=== PATIENT | female | born 1990 | race African-American/Black ===

== ENCOUNTER 2022-06-03 08:45 | Emergency (ER) | payer OTHER, SELFPAY ==
--- NOTE | ~2022-06-03 | US_ITS ---
EXAMINATION: US OB <= 14 weeks fetus DATE: 06/03/2022 09:34 INDICATION: Vaginal bleeding during first trimester TECHNIQUE: Real-time pelvic transabdominal and transvaginal ultrasound was performed. COMPARISON: None. FINDINGS: The uterus measures 9.0 x 8.6 x 8.2 cm. There is an intrauterine gestational sac. There is a 2.2 x 0.4 x 1.5 cm hypoechoic area adjacent to the gestational sac. A yolk sac is identified. Feta l heart motion is identified measuring 167 beats per minute (bpm) by M-mode Doppler. The crown rump length measures 3.9 cm , which correlates with an estimated gestational age of 10 weeks and 5 da y(s) (+/-) 7 day(s). The right ovary is not visualized however no right adnexal abnormality is seen. The left ovary measur es 3.4 x 2.5 x 2.6 cm. There is normal vascular flow in the left ovary. There is no free fluid in the pelvis. IMPRESSION: 1. Live intrauterine with an estimated gestational age of 10 weeks and 5 day(s) (+/-) 7 day (s) and an estimated delivery date of 12/25/2022. 2. Small subchronic hematoma. Reviewed, dictated and finalized at location B. IMPRESSION: 1. Live intrauterine with an estimated gestational age of 10 weeks an d 5 day(s) (+/-) 7 day(s) and an estimated delivery date of 12/25/2022. 2. Small subchronic hematoma.
[2022-06-03 08:49] VITALS: BP 127/73; PULSE 97; RESP 20; TEMP 36.9; O2SAT 98
--- NOTE | 2022-06-03 09:08 | ED.PREGNANCY ---
HPI - General Chief complaint: Vaginal Bleeding Stated complaint: 3 mos preg, spotting Time Seen by Provider: 06/03/22 09:00 History of Present Illness HPI Narrative: 32-year-old female presents to the emergency room for evaluation of vaginal bleeding. Patient states she is approximately 13 weeks , and has received no PROCESS EQUIPMENT OPERATOR care during this . Patient is a G5, P4. Patient also reports lower abdominal pain that radiates into her back. Denies dysuria or fever. Denies discharge. No concerns over STDs at this time Related Data Allergies Allergy/AdvReac Type Severity Reaction Status Date / Time No Known Allergies Allergy Verified 06/03/22 09:11 Review of Systems Review of Systems: CONSTITUTIONAL: Denies fever, chills, or sweats. EYES: Denies visual changes, redness, or discharge. ENT: Denies rhinorrhea, congestion, sore throat, or otalgia. CARDIOVASCULAR: Denies chest pain, palpitations, or edema. RESPIRATORY: Denies cough or dyspnea. GASTROINTESTINAL: Denies abdominal pain, nausea, vomiting, or diarrhea. GENITOURINARY: Denies dysuria or hematuria. Reports vaginal bleeding SKIN: Denies rash or itching. MUSCULOSKELETAL: Denies back pain, joint pain, or myalgia. NEUROLOGIC: Denies headache, numbness, dizziness, or weakness. PSYCHIATRIC: Denies anxiety or depression. Exam Narrative: GENERAL: Well-appearing, well-nourished, no physical limitations, and in no acute distress. HEAD: Normocephalic, atraumatic. EYES: Conjunctivae normal, PERRLA and EOMI. CHEST: Clear to auscultation. No respiratory distress. No wheezes rales or rhonchi. No tenderness. HEART: Regular rate and rhythm. No murmur heard. Normal peripheral pulses. ABDOMEN: Soft, suprapubic tenderness, nondistended, normal active bowel sounds. : Deferred BACK: No CVA tenderness; No cervical/thoracic/lumbar tenderness, step-offs, bony abnormality; FROM EXTREMITIES: Normal range of motion. No edema. No clubbing or cyanosis SKIN: Warm, dry, no rash. No noted wounds NEURO: No focal deficits. Alert and oriented x3. MAEW. CN's II-XI intact bilaterally, normal gait PSYCH: Cooperative. Normal mood and affect. Course Vital Signs Vital signs: Vital Signs Temperature 36.9 C 06/03/22 08:49 Pulse Rate 97 06/03/22 08:49 Respiratory Rate 20 06/03/22 08:49 Blood Pressure 127/73 06/03/22 08:49 Pulse Oximetry 98 06/03/22 08:49 Oxygen Delivery Room Air 06/03/22 08:49 Temperature 36.9 C 06/03/22 08:49 Pulse Rate 97 06/03/22 08:49 Respiratory Rate 20 06/03/22 08:49 Blood Pressure 127/73 06/03/22 08:49 Pulse Oximetry 98 06/03/22 08:49 Oxygen Delivery Room Air 06/03/22 08:49 MDM - OB/Uterine Contractions MDM Narrative Medical decision making narrative: 32-year-old female presenting with vaginal bleeding in the first trimester ultrasound demonstrated a live intrauterine at approximately 10 weeks and a small subchorionic hemorrhage urine was negative for a UTI. Discussed case with patient. Will have patient follow-up with PROCESS EQUIPMENT OPERATOR tomorrow. Lab Data Result diagrams: 06/03/22 09:31 06/03/22 09:31 Labs: Lab Results 06/03/22 06/03/22 06/03/22 Range/Units 09:31 09:31 09:31 WBC 3.9 L (4.5-10.0) K/mm3 RBC 4.44 (4.2-5.4) M/mm3 Hgb 11.7 L (12.0-15.0) g/dL Hct 36.4 L (37.0-47.0) % MCV 82.0 (80-100) fl MCH 26.4 (26-34) pg MCHC 32.1 (32-36) g/dl RDW 14.9 H (11.5-14.5) % Plt Count 262 (150-375) k/mm3 MPV 10.1 (7.4-10.4) fl Immature Gran % (Auto) 0.0 (0-0.5) % Neut % (Auto) 51.3 (45.5-73.1) % Lymph % (Auto) 36.7 (18.3-44.2) % [place] % (Auto) 7.4 (2.6-8.5) % Eos % (Auto) 3.8 (0-4.4) % Baso % (Auto) 0.8 (0.2-1.2) % Lymph # (Auto) 1.44 (0.9-3.2) K/mm3 [place] # (Auto) 0.3 (0.1-0.6) K/mm3 Eos # (Auto) 0.2 (0-0.3) K/mm3 Baso # (Auto) 0.0 (0.0-0.1) K/mm3 Abs Immat Gran (auto) 0.00
[2022-06-03 09:42] LABS: Basophils Percent Auto 0.8 % (0.2-1.2); Eosinophils Absolute Auto 0.2 K/mm3 (0-0.3); Eosinophils Percent Auto 3.8 % (0-4.4); Hematocrit 36.4 % (37.0-47.0); Hemoglobin 11.7 g/dL (12.0-15.0); Lymphocytes Absolute Auto 1.44 K/mm3 (0.9-3.2); Lymphocytes Percent Auto 36.7 % (18.3-44.2); Mean Corpuscular HGB Conc 32.1 g/dl (32-36); Mean Corpuscular Hemoglobin 26.4 pg (26-34); Mean Platelet Volume 10.1 fl (7.4-10.4); Monocytes Absolute Auto 0.3 K/mm3 (0.1-0.6); Monocytes Percent Auto 7.4 % (2.6-8.5); Neutrophils Percent Auto 51.3 % (45.5-73.1); Platelet Count Result 262 k/mm3 (150-375); Red Blood Count 4.44 M/mm3 (4.2-5.4); Red Cell Distribution Width 14.9 % (11.5-14.5); White Blood Count 3.9 K/mm3 (4.5-10.0)
[2022-06-03 09:43] LABS: Appearance Urine Clear (Clear); Bilirubin Urine Negative (Negative); Glucose Urine UA Negative (Negative); Ketones Urine Negative (Negative); Leukocyte Esterase Ur Negative LEU/UL (Negative); Nitrate Urine Negative (Negative); Protein Urine Negative (Negative); Urobilinogen Urine 0.2 mg/dL (<2.0)
[2022-06-03 09:44] LABS: Add Urine Microscopic? YES; Blood Urine Trace-Intact (Negative); Color Urine Light Yellow (Yellow)
[2022-06-03 09:50] LABS: Mucus Urine Rare /lpf; RBC Urine 0-2 /hpf (0-2); Squamous Epithelial Cell Urine Few /hpf (Few); WBC Urine 0-3 /hpf
[2022-06-03 09:55] LABS: Alanine Aminotransferase 18 U/L (6-35); Albumin Level 4.4 g/dL (3.5-5.1); Alkaline Phosphatase 68 U/L (38-126); Anion Gap 8 mmol/L (8-16); Aspartate Amino Transferase 22 U/L (14-36); Bilirubin,Total 0.7 mg/dL (0.2-1.3); Blood Urea Nitrogen 8 mg/dL (7-17); Calcium 8.9 mg/dL (8.4-10.2); Carbon Dioxide 22 mmol/L (22-30); Chloride 106 mmol/L (98-107); Estimated CRCL calculation 152 ml/min; Estimated Glomerular Filt Rate > 60; Glucose 114 mg/dL (65-110); Potassium 3.9 mmol/L (3.4-5.0); Sodium 136 mmol/L (137-145)
== END 2022-06-03 11:45 | disposition home or self-care (01) ==
PROVIDERS: Emergency Provider Nurse Practitioner Family
DX: O36.8910 Maternal care for other specified fetal problems, first trimester, not applicable or unspecified (principal); Z3A.13 13 weeks gestation of pregnancy
CPT/HCPCS: 36415; 76801; 80053; 81001; 84702; 85025; 85461; 99284

== ENCOUNTER 2022-10-27 10:56 | Observation (INO) | payer OTHER, SELFPAY ==
[2022-10-27 11:16] VITALS: BP 103/71; PULSE 101
[2022-10-27 11:31] VITALS: BP 102/66; PULSE 104
[2022-10-27 11:46] VITALS: BP 100/75; PULSE 117
[2022-10-27 12:01] VITALS: BP 111/71; PULSE 98
[2022-10-27 12:16] VITALS: BP 98/72; PULSE 107
--- NOTE | 2022-10-27 12:16 | PC.NURSE ---
Dr Ward notified that patient is have occa contractions between 10-15 minutes, that patient is uncomfortable even when unable to palpate contractions. Dr Ward informed that patient had sexual intercourse yesterday and unable to collect FFN. Order for SVE.
[2022-10-27 12:44] LABS: Appearance Urine Clear (Clear); Bilirubin Urine Negative (Negative); Blood Urine Negative (Negative); Color Urine Yellow (Yellow); Glucose Urine UA Negative (Negative); Ketones Urine Trace mg/dL (Negative); Leukocyte Esterase Ur Trace LEU/UL (NEGATIVE); Nitrate Urine Negative (Negative); Protein Urine Negative (Negative)
[2022-10-27 12:50] LABS: Amorphous Sediment Urine Few; Mucus Urine Rare /lpf; Squamous Epithelial Cell Urine Rare /hpf (Few); WBC Urine 0-3 /hpf (0-3)
[2022-10-27 12:51] LABS: Add Urine Microscopic? YES
--- NOTE | 2022-10-27 13:16 | PC.NURSE ---
Dr Ward notified of sve and UA results. OK to [facility].
--- NOTE | 2022-11-18 03:27 | PM.OBTRLD ---
OB - Triage/Final Diagnosis Visit Information Comments/Additional reasons for admission: I have assessed the risk for this patient, Estrella Templeton, and determined that she would benefit from observation care. Evaluation Laboratory results: Laboratory Tests 10/27/22 12:35 Urine Color Yellow Urine Appearance Clear Urine pH 7.0 Ur Specific [place] 1.020 Urine Protein Negative Urine Glucose (UA) Negative Urine Ketones Trace Ur Blood (Man) Negative Urine Nitrate Negative Urine Bilirubin Negative Urine Urobilinogen 1.0 Ur Leukocyte Esterase Trace H Urine RBC 3-5 H Urine WBC 0-3 Ur Squamous Epith Cells Rare Amorphous Sediment Few H Urine Mucus Rare Final Diagnosis (1) False labor: Code(s): O47.9 - False labor, unspecified Status: Acute
== END 2022-10-27 13:25 | disposition home or self-care (01) ==
PROVIDERS: Admitting Provider Obstetrics & Gynecology; Visit Provider Obstetrics & Gynecology
DX: O47.03 False labor before 37 completed weeks of gestation, third trimester (principal); Z3A.31 31 weeks gestation of pregnancy
CPT/HCPCS: 81001; 87086; 87147; 87181; 87186; G0378; G0379

== ENCOUNTER 2022-11-16 15:02 | Observation (INO) | payer OTHER, SELFPAY ==
[2022-11-16] VITALS (7 sets, daily range): BP systolic 108–124; BP diastolic 65–76; PULSE 92–115; BMI 39.7
--- NOTE | 2022-11-16 15:33 | OBADM ---
This patient, Estrella Templeton, admitted to the OB room OB Post 115 for observation. Patient/family oriented to hospital policies and general routines including ID bracelet, bed and alarms, visiting hours, pain management, procedures, bathroom and other care routines, personal items, smoking policy, room service/diet, and visiting hours. Patient/Family are encouraged to report perceived risks to care and to ask questions if they do not understand what they are told or what they should do.
[2022-11-16 15:40] LABS: Add Urine Microscopic? YES; Appearance Urine Slightly Cloudy (Clear); Bilirubin Urine Negative (Negative); Blood Urine Negative (Negative); Color Urine Yellow (Yellow); Glucose Urine UA Negative (Negative); Ketones Urine 1+ mg/dL (Negative); Leukocyte Esterase Ur Trace LEU/UL (Negative); Nitrate Urine Negative (Negative); Protein Urine Trace mg/dL (Negative)
[2022-11-16 15:49] LABS: Bacteria Urine Trace /hpf; Mucus Urine Rare /lpf; RBC Urine 0-2 /hpf (0-2); Squamous Epithelial Cell Urine Many /hpf (Few)
--- NOTE | 2022-11-16 16:46 | PC.NURSE ---
1640- Spoke with Dr. Nicholson, orders to recheck SVE after 2 hours. If no change, discharge to home.
--- NOTE | 2022-11-16 16:49 | PC.NURSE ---
1522- Spoke with Dr. Nicholson, patient here with abdominal pain and vaginal pressure. Orders for SVE and send urinalysis.
--- NOTE | 2022-12-08 08:41 | P.PNOB_ITS ---
OB - Triage/Final Diagnosis Visit Information Comments/Additional reasons for admission: I have assessed the risk for this patient, Estrella Templeton, and determined that she would benefit from observation care. Evaluation Laboratory results: Laboratory Tests 11/16/22 15:32 Urine Color Yellow Urine Appearance Slightly cloudy Urine pH 7.0 Ur Specific [place] 1.020 Urine Protein Trace Urine Glucose (UA) Negative Urine Ketones 1+ H Ur Blood (Man) Negative Urine Nitrate Negative Urine Bilirubin Negative Urine Urobilinogen 1.0 Leukocyte Esterase Rfl Trace H Urine RBC 0-2 Urine WBC 4-6 H Ur Squamous Epith Cells Many H Urine Bacteria Trace Hyaline Casts 1-2 Urine Mucus Rare Final Diagnosis (1) Abdominal pain affecting : Code(s): O26.899 - Other specified related conditions, unspecified trimester; R10.9 - Unspecified abdominal pain Status: Acute
== END 2022-11-16 18:00 | disposition home or self-care (01) ==
PROVIDERS: Admitting Provider Obstetrics & Gynecology; Visit Provider Obstetrics & Gynecology
DX: O26.893 Other specified pregnancy related conditions, third trimester (principal); R10.9 Unspecified abdominal pain; Z3A.34 34 weeks gestation of pregnancy
CPT/HCPCS: 81001; G0378; G0379

== ENCOUNTER 2022-12-04 16:11 | Observation (INO) | payer OTHER, SELFPAY ==
[2022-12-04] MEDS: LACTATED RINGERS 1,000 ML 200 ML IV CONT (17:04)
[2022-12-04 17:08] VITALS: BP 113/61; PULSE 78
[2022-12-04 17:09] VITALS: RESP 20; TEMP 37; BMI 38.2
--- NOTE | 2022-12-04 17:09 | OBADM ---
This patient, Estrella Templeton, admitted to the OB room 116 at 1611 for observation due to contractions and loose stools. Patient/family oriented to hospital policies and general routines including ID bracelet, bed and alarms, visiting hours, pain management, procedures, bathroom and other care routines, personal items, smoking policy, room service/diet, and visiting hours. Patient/Family are encouraged to report perceived risks to care and to ask questions if they do not understand what they are told or what they should do.
[2022-12-04 18:00] VITALS: BP 106/64; PULSE 73
[2022-12-04 19:00] VITALS: BP 117/62; PULSE 73
[2022-12-04 19:43] LABS: Add Urine Microscopic? YES; Appearance Urine Clear (Clear); Bilirubin Urine Negative (Negative); Blood Urine Negative (Negative); Color Urine Yellow (Yellow); Glucose Urine UA Negative (Negative); Ketones Urine 3+ mg/dL (Negative); Leukocyte Esterase Ur Negative LEU/UL (Negative); Nitrate Urine Negative (Negative); Protein Urine Trace mg/dL (Negative); Specific Grav Ur 1.025 (1.001-1.035); pH Urine 6.5 (5.0-9.0)
[2022-12-04 19:46] LABS: Amorphous Sediment Urine Few; Bacteria Urine Trace /hpf; Mucus Urine Few /lpf; Squamous Epithelial Cell Urine Occasional /hpf (Few); WBC Urine 0-3 /hpf
--- NOTE | 2022-12-04 19:56 | PC.NURSE ---
Dr Ward is called at this time and informed of contraction pattern, CAT1 tracing, and UA results. Orders received to DC patient to home with education on oral hydration.
--- NOTE | 2022-12-17 19:54 | P.PNOB_ITS ---
OB - Triage/Final Diagnosis Visit Information Comments/Additional reasons for admission: I have assessed the risk for this patient, Estrella Templeton, and determined that she would benefit from observation care. Evaluation Laboratory results: Laboratory Tests 12/04/22 19:35 Urine Color Yellow Urine Appearance Clear Urine pH 6.5 Ur Specific [place] 1.025 Urine Protein Trace Urine Glucose (UA) Negative Urine Ketones 3+ H Ur Blood (Man) Negative Urine Nitrate Negative Urine Bilirubin Negative Urine Urobilinogen 1.0 Leukocyte Esterase Rfl Negative Urine RBC 3-5 H Urine WBC 0-3 Ur Squamous Epith Cells Occasional Amorphous Sediment Few H Urine Bacteria Trace Urine Mucus Few H Final Diagnosis (1) False labor: Code(s): O47.9 - False labor, unspecified Status: Acute
== END 2022-12-04 20:15 | disposition home or self-care (01) ==
PROVIDERS: Admitting Provider Obstetrics & Gynecology; Visit Provider Obstetrics & Gynecology
DX: O47.1 False labor at or after 37 completed weeks of gestation (principal); Z3A.37 37 weeks gestation of pregnancy
CPT/HCPCS: 59025; 81001; G0378; G0379; J7120

== ENCOUNTER 2022-12-17 13:23 | Outpatient (CLI) | payer OTHER, SELFPAY ==
[2022-12-17 13:37] LABS: Hematocrit 29.9 % (37.0-47.0); Hemoglobin 9.6 g/dL (12.0-15.0); Mean Corpuscular HGB Conc 32.1 g/dl (32-36); Mean Corpuscular Hemoglobin 25.2 pg (26-34); Mean Corpuscular Volume 78.5 fl (80-100); Platelet Count Result 232 k/mm3 (150-375); Red Blood Count 3.81 M/mm3 (4.2-5.4); Red Cell Distribution Width 14.6 % (11.5-14.5); White Blood Count 5.7 K/mm3 (4.5-10.0)
[2022-12-17 16:51] LABS: Rapid Plasma Reagin Non-Reactive (NonReactive)
== END 2022-12-17 13:24 | disposition home or self-care (01) ==
LOC: ANHLAB 13:24
PROVIDERS: Visit Provider Obstetrics & Gynecology
DX: Z34.93 Encounter for supervision of normal pregnancy, unspecified, third trimester (principal); Z3A.00 Weeks of gestation of pregnancy not specified
CPT/HCPCS: 36415; 85027; 86592; 86850; 86900; 86901

== ENCOUNTER 2022-12-18 04:57 | Inpatient (IN) | payer OTHER, SELFPAY ==
--- NOTE | 2022-12-17 12:55 | PC.NURSE ---
Verified with OR schedule and patient--C/S 12/18/22 at 0730 Patient given requisition for pre-op lab draw
[2022-12-18] VITALS (66 sets, daily range): BP systolic 78–129; BP diastolic 36–92; PULSE 55–148; RESP 12–20; TEMP 36.3–37; O2SAT 96–100; BMI 39.7
--- NOTE | 2022-12-18 05:29 | LDADM ---
This patient, Estrella Templeton, was admitted to Labor/Delivery/Recovery 120 on 12/18/22 at 04:57. Plans for labor, pain management and were discussed with patient. Patient/family oriented to hospital policies and general routines including ID bracelet, bed and alarms, visiting hours, pain management, procedures, bathroom and other care routines, personal items, smoking policy, room service/diet and guest tray routines, security routines, and visiting hours. Patient/Family are encouraged to report perceived risks to care and to ask questions if they do not understand what they are told or what they should do. See OBIX for further documentation.
[2022-12-18] MEDS: LACTATED RINGERS 1,000 ML 125 ML IV CONT ×2 (06:12→06:55)
--- NOTE | 2022-12-18 07:00 | P.PNAN_ITS ---
Anes - Initial Pre Proc Eval Procedure: Operation Date: 12/18/22 07:30 Proposed Procedures p Repeat Section - Leidy Ward MD Date/Time: 12/18/22 07:00 Surgeon: Leidy Ward MD Pre Op Diagnosis: C/S Patient Data Age: 32 Gender: F Height: 1.63 m Weight: 105 kg Last Vital Signs Pulse 82 12/18/22 06:46 BP 112/67 12/18/22 06:46 O2 Del Method Room Air 12/18/22 05:28 Allergies Allergy/AdvReac Type Severity Reaction Status Date / Time morphine AdvReac Itching Verified 12/18/22 05:26 Home Medications Medication Instructions Recorded Confirmed Type vitamin with calcium 1 tablet PO DAILY 12/04/22 12/18/22 History no.72-iron 27 mg-folic acid 1 mg tablet ( Vitamins Plus Low Iron) Patient hx anesthesia problems: none Family hx anesthesia problems: none Results Review: All pre-operative results and documents have been reviewed as part of the pre- operative evaluation. PMFSH Family History Family History Other Unknown family medical history Social History Social History Smoking status: Never smoker Substance use: never Lack of Transportation: No Lack of Food: Never True Current Housing: I Have Housing Concerned About Future Housing: No Difficulty Paying Gas/Electric Bills: No Difficulty Paying for Meds: No Currently Unemployed: No Education: High School Diploma/GED Difficulty w/ Childcare or Family Care: No Spiritual care concerns: No Anes - Eval Final PreProcedure Day of Procedure 12/18/22 07:00 Patient weight: obese Heart: regular rate and rhythm Lungs: clear to auscultation Airway: Mallampati scale class II Neurological: alert and oriented Last oral intake: >/= 8 hours ASA classification: II Emergent: no Anesthetic plan: proceed Anesthesia type and monitoring: regional spinal and standard monitoring Results Review: All pre-operative results and documents have been reviewed as part of the pre- operative evaluation. Informed Consent: The patient's anesthetic plan and its attendant risks and benefits were discussed with the patient/family/POA. Questions were solicited and answers provided to the satisfaction of the patient/family/POA.
--- NOTE | 2022-12-18 07:22 | PM.IMHP ---
H&P: HPI History of Present Illness Date/Time: 12/18/22 07:22 Chief Complaint: Term Narrative: this patient is a 32-year-old female at 39 weeks with 4 previous deliveries. To proceed with repeat delivery today. She understands the risk. She understands that injuries may occur that result in hospitalization, more surgery, and severe illness. She understands the risk of hemorrhage and infection. She denies any chest pain shortness of breath. She denies any nausea, vomiting, fever, chills. She denies any loss of fluid, vaginal bleeding or contractions. Review of Systems Review of Systems: All systems reviewed & are unremarkable except as noted in HPI and below Constitutional: Constitutional: Denies chills, Denies fatigue, Denies fever(s) and Denies weakness Eyes: Eyes: Denies blurry vision, Denies change in vision, Denies loss of peripheral vision, Denies loss of vision, Denies other visual disturbances and Denies eye pain ENT: Denies vertigo, Denies dizziness, Denies hearing loss, Denies mouth pain, Denies nasal obstruction, Denies neck mass and Denies neck pain Cardiovascular: Cardiovascular: Denies chest pain, Denies diaphoresis, Denies syncope, Denies leg edema and Denies dyspnea Respiratory: Respiratory: Denies chest congestion, Denies cough, Denies hemoptysis, Denies dyspnea and Denies wheezing Gastrointestinal: Gastrointestinal: Denies abdominal pain, Denies constipation, Denies diarrhea, Denies nausea and Denies vomiting Genitourinary: Genitourinary: Denies hematuria, Denies change in libido, Denies nocturia, Denies genital lesions, Denies flank pain and Denies urinary urgency Musculoskeletal: Musculoskeletal: Denies abnormal gait, Denies back pain, Denies myalgias, Denies arthralgias, Denies joint swelling, Denies muscle weakness and Denies neck pain Integumentary/Breasts: Skin/Breast: Denies swelling, Denies breast pain, Denies breast mass, Denies dry skin, Denies nipple discharge, Denies unusual bruising and Denies jaundice Neurologic: Denies Neuro-related abnormal movements, Denies Abnormal speech present, Denies abnormal gait, Denies behavioral changes, Denies confusion, Denies vertigo, Denies dizziness, Denies syncope, Denies loss of vision, Denies memory loss, Denies convulsions and Denies weakness Psychiatric: Psychiatric: Denies abnormal sleep pattern, Denies behavioral changes, Denies change in libido, Denies confusion, Denies depression, Denies anhedonia and Denies memory loss Endocrine: Endocrine: Reports no additional endocrine complaints, Denies change in libido and Denies fatigue Hematologic/Lymphatic: Hematologic/Lymphatic: Reports no additional hematologic/lymphatic complaints Allergic/Immunologic: Allergic/Immunologic: Reports no additional allergic/immunologic complaints and Denies wheezing PMFSH Family History Family History Other Unknown family medical history Social History Social History Smoking status: Never smoker Substance use: never Lack of Transportation: No Lack of Food: Never True Current Housing: I Have Housing Concerned About Future Housing: No Difficulty Paying Gas/Electric Bills: No Difficulty Paying for Meds: No Currently Unemployed: No Education: High School Diploma/GED Difficulty w/ Childcare or Family Care: No Spiritual care concerns: No Meds Home Medications and Allergies Home Medications Medication Instructions Recorded Confirmed Type vitamin with calcium 1 tablet PO DAILY 12/04/22 12/18/22 History no.72-iron 27 mg-folic acid 1 mg tablet ( Vitamins Plus Low Iron) Allergies Allergy/AdvReac Type Severity Reaction Status Date / Time morphine AdvReac Itching Verified 12/18/22 05:26 Vital Signs Vital Signs - 24 hr 12/18/22 05:28 12/18/22 05:38 12/18/22 05:4
[2022-12-18] MEDS: LORATADINE 10 MG TABLET PO ×2 (07:25→19:43)
[2022-12-18] MEDS: ceFAZolin 2 GM/D5W 50 ML 2 GM/50 ML BAG IVPB (07:27)
--- NOTE | 2022-12-18 08:31 | W.PM.PROC2 ---
Procedure Note - Detailed Date of Procedure 12/18/22 Pre-op Diagnosis Previous C/S Post-op Diagnosis Same Procedure Performed Low-transverse section Surgeon Leidy Ward MD Anesthesia Spinal Findings Normal gestational maternal anatomy, average size infant, normal Apgars. Description of Procedure The patient was taken the operating room. She was prepped and draped in dorsal supine position with a leftward tilt. This was done after spinal anesthetic was applied. A low-transverse skin incision was made and carried down till of the fascia with the knife. The fascial incision was made with the knife. The fascial incision was extended laterally with Hair scissors. The fascia was tented upward superiorly and inferiorly the rectus muscles were dissected off bluntly. The rectus muscles were the midline. The preperitoneal fat and peritoneum were dissected open bluntly at the superior aspect of the rectus muscles. The peritoneal incision was extended superior and inferior with good position of bladder. The uterine incision was made with a scalpel down to the level of the amniotic cavity. The amniotic cavity was entered bluntly. The was delivered. The cord was clamped and cut and the infant was handed off to waiting pediatric staff. Cord bloods were obtained. The placenta was removed manually. The uterus was exteriorized. The uterus was cleared of all clots, debris and membranes. The uterus was closed in 0 Vicryl running lock fashion. An imbricating over a was placed along the incision line as well. The uterus was returned to the abdomen. The gutters were cleared of all clots and debris. The fascia was closed with 0 Vicryl running fashion. The subcutaneous tissue was irrigated pinpoint bleeders were cauterized. The skin was closed with subcuticular absorbable reilly. The skin incision line was covered with glue. The patient tolerated the procedure well. She has taken recovery room in stable condition. Sponge lap and needle counts were correct x2. Estimated Blood Loss 400 Complications No immediate complications Condition Stable Disposition PACU
--- NOTE | 2022-12-18 10:45 | OBPPTRN ---
Patient transferred to post room #280 via stretcher. Support person present. Oriented to unit, room, information board, rooming in, admission packet and security measures. Patient verbalizes understanding.
[2022-12-18] MEDS: KETOROLAC 30 MG/ML VIAL (*BKC) IV PUSH (11:26)
[2022-12-18] MEDS: DEXTROSE 5%/0.45% SOD CHL 1,000 ML 125 ML IV CONT (13:35)
[2022-12-18] MEDS: diphenhydrAMINE HCl INJ 50 MG/ML VIAL 25 MG IV PUSH (14:41)
[2022-12-18] MEDS: NALBUPHINE HCL INJ 10 MG/ML AMPUL 2 MG IV PUSH (15:40)
[2022-12-18] MEDS: POLYSACCHARIDE IRON COMPLEX 150 MG CAPSULE PO (16:25)
[2022-12-18] MEDS: DOCUSATE SODIUM 100 MG CAPSULE PO (16:25)
[2022-12-18] MEDS: MULTIVIT/MIN/PREN/FOL AC/IRON TABLET 1 TAB PO (16:25)
--- NOTE | 2022-12-18 16:26 | PC.NURSE ---
[id number] Introductions were made, then consulted with patient to assess needs related to . Mother led the conversation with her?plans to feed?her , she has a history of but this is the first baby that has been sleepy and not breastfed right away. Resources provided for inpatient and outpatient services with the mom/baby guide. Mother voiced understanding of information and received offer of assistance since her has not breastfed since . Mother works well with her with encouragement and education. Encouraged understanding of the benefits of skin to skin (demonstrating unwrapping infant and placing upright on her chest), stimulating with massage touch, changing positions to encourage wakefulness, how to watch for early feeding cues, responsive feeding, feeding on demand (aiming for 8-12 times in 24 hours, about every 2-3 hours), milk production, building/maintaining a milk supply, duration of feeding, signs of adequate intake/output and how to record on the feeding sheet. Reviewed positioning and ear, shoulder, hip alignment, supporting the breast to facilitate a deep latch, asymmetrical latch (off-center), leading with the chin with a big, open, wide gape and body close to mother. Infant is sleepy and reluctant. Mother was educated on the skill of hand expressing first milk from her breast and 1/2 tsp was spoonfed to her , then latched optimally to the left breast in cross cradle position for 5 minutes. Education given to mother of how to visualize suck/swallow ratios and listen for drinking at the breast. Infant was able to maintain latch without discomfort to mother, however, detached and was placed skin to skin relaxed and content. Nipple care reviewed with optimal latch and good positioning. Reviewed good handwashing when or touching the breast/nipples to prevent infection. Resources used to facilitate learning were used with the tool, mom and baby guide. Mother voiced understanding of skin to skin, stimulating with massage touch, responsive feedings, hand expressed colostrum, talking to infant to encourage if it has been 2 -2.5 hours since the start of the last , to call if infant does not latch, or if there is discomfort with . Resources provided for inpatient/outpatient with the mom/baby guide. Mother voiced understanding of information, demonstrated learning and will call if there is a request for assistance. Reported to primary RN. [id number] Purposefully rounded to assess needs. was placed skin to skin, stimulated, burped, massage touched, talk to and encouraged to wake to breastfeed. is sleepy and reluctant. Mother practiced hand expression and 4mls of colostrum was spoon fed to the . A few minutes after feeding the spit up white, frothy clearing fluid. Mother was encouraged to continue to practice self care, skin to skin, stimulating infant every 2-3 hours, practice if feeding cues are visualized, hand express and ask for assistance with latching infant effectively or if there is pain with the latch. Mother voiced understanding of the information and encouraged to wait for the big, open, wide gape for latching with chin buried into the breast with nose near and discouraged to push the nipple into the infants mouth. Reported to the Primary RN.
[2022-12-18] MEDS: IBUPROFEN 600 MG TABLET PO (19:43)
[2022-12-18] MEDS: HYDROcodone/acetaminophen (*CRX) 5-325 MG TABLET 1 TAB PO (19:44)
[2022-12-19 00:18] VITALS: BP 94/59; PULSE 87; RESP 16; TEMP 36.9; O2SAT 100
[2022-12-19] MEDS: IBUPROFEN 600 MG TABLET PO ×3 (02:44→16:41)
[2022-12-19] MEDS: HYDROcodone/acetaminophen (*CRX) 5-325 MG TABLET 1 TAB PO (02:45)
[2022-12-19 04:11] VITALS: BP 94/59; PULSE 87; RESP 16; TEMP 36.9; O2SAT 100
[2022-12-19 05:26] LABS: Basophils Percent Auto 0.4 % (0.2-1.2); Eosinophils Absolute Auto 0.1 K/mm3 (0-0.3); Eosinophils Percent Auto 1.3 % (0-4.4); Hematocrit 28.5 % (37.0-47.0); Immature Granulocyte Absolute 0.03 K/mm3 (0.00-0.031); Immature Granulocyte Percent A 0.4 % (0-0.5); Lymphocytes Percent Auto 17.7 % (18.3-44.2); Mean Corpuscular HGB Conc 31.6 g/dl (32-36); Mean Corpuscular Hemoglobin 24.7 pg (26-34); Mean Corpuscular Volume 78.3 fl (80-100); Mean Platelet Volume 11.1 fl (7.4-10.4); Monocytes Absolute Auto 0.7 K/mm3 (0.1-0.6); Monocytes Percent Auto 8.1 % (2.6-8.5); Neutrophils Absolute Auto 6.1 K/mm3 (1.3-6.7); Neutrophils Percent Auto 72.1 % (45.5-73.1); Platelet Count Result 242 k/mm3 (150-375); Red Blood Count 3.64 M/mm3 (4.2-5.4); Red Cell Distribution Width 14.6 % (11.5-14.5); White Blood Count 8.5 K/mm3 (4.5-10.0)
--- NOTE | 2022-12-19 07:52 | P.PNOB_ITS ---
OB - PN: Subj Subjective Date/time seen: 12/19/22 0752 s/p section day 2 OB - PN: Obj Data Labs 12/19/22 04:37 Labs: Laboratory Results - last 24 hr 12/19/22 04:37 WBC 8.5 RBC 3.64 L Hgb 9.0 L Hct 28.5 L MCV 78.3 L MCH 24.7 L MCHC 31.6 L RDW 14.6 H Plt Count 242 MPV 11.1 H Immature Gran % (Auto) 0.4 Neut % (Auto) 72.1 Lymph % (Auto) 17.7 L [place] % (Auto) 8.1 Eos % (Auto) 1.3 Baso % (Auto) 0.4 Lymph # (Auto) 1.50 [place] # (Auto) 0.7 H Eos # (Auto) 0.1 Baso # (Auto) 0.0 Abs Immat Gran (auto) 0.03 Absolute Neuts (auto) 6.1 Absolute Nucleated RBC 0.0 Nucleated RBC % 0.0 OB - PN A/P Plan day: 1 Plan: routine care Time Spent With Patient Time: Total time spent is greater than 50% in coordination of care (as documented) at patient's floor/unit and/or counseling patient: Review of Systems Review of Systems: All systems reviewed & are unremarkable except as noted in HPI and below Exam Narrative: incision CDI Const: General: cooperative, healthy appearing and comfortable
[2022-12-19 08:15] VITALS: BP 116/69; PULSE 80; RESP 18; TEMP 37.4; O2SAT 100
[2022-12-19] MEDS: DOCUSATE SODIUM 100 MG CAPSULE PO ×2 (08:29→16:40)
[2022-12-19] MEDS: MULTIVIT/MIN/PREN/FOL AC/IRON TABLET 1 TAB PO (08:30)
[2022-12-19] MEDS: POLYSACCHARIDE IRON COMPLEX 150 MG CAPSULE PO ×2 (08:30→16:40)
[2022-12-19] MEDS: NALBUPHINE HCL INJ 10 MG/ML AMPUL 2 MG IV PUSH (08:42)
--- NOTE | 2022-12-19 09:57 | WPDANLDPN2 ---
Anes-Prog Note L&D Date/Time: 12/19/22 09:57 Comfortable throughout: section Neuraxial method: spinal Epidural/Spinal procedure site: clean & non-tender Neuro status: Neuro function grossly intact. Cardiovascular status: normal Respiratory status: normal Airway patency: baseline Mental status: baseline Post-Op hydration status: normal Vital Signs: Last Vital Signs Temp 37.4 C 12/19/22 08:15 Pulse 80 12/19/22 08:15 Resp 18 12/19/22 08:15 BP 116/69 12/19/22 08:15 Pulse Ox 100 12/19/22 08:15 O2 Del Method Room Air 12/18/22 20:27 Pain score (VAS): 0 I/O: Intake & Output 12/18/22 12/19/22 12/19/22 23:59 07:59 15:59 Intake Total 700 Output Total 2625 Balance -1925 Post-procedural complaints: pruritis Patient feedback: Patient satisfied with anesthetic care.
--- NOTE | 2022-12-19 09:58 | WPDANLDNPN2 ---
Anes-Prog Note L&D-Neuraxial Date/Time: 12/19/22 09:58 Neuraxial medications: intrathecal PF morphine Opiod-related complaints: pruritis Patient feedback: Patient satisfied with post-operative pain management.
[2022-12-19] MEDS: SIMETHICONE 80 MG TAB.CHEW PO ×3 (11:16→19:48)
[2022-12-19] MEDS: HYDROcodone/acetaminophen (*CRX) 10-325 MG TABLET 1 TAB PO ×3 (11:17→19:48)
--- NOTE | 2022-12-19 12:20 | PC.NURSE ---
Rupert Barba RN, has checked over and agrees with the charting that Bertin Chowdary, Student RN, has completed.
[2022-12-19 19:10] VITALS: BP 106/72; PULSE 74; RESP 18; TEMP 36.6; O2SAT 100
[2022-12-20] MEDS: SIMETHICONE 80 MG TAB.CHEW PO ×5 (00:20→17:33)
[2022-12-20] MEDS: HYDROcodone/acetaminophen (*CRX) 10-325 MG TABLET 1 TAB PO ×3 (00:20→17:34)
[2022-12-20] MEDS: HYDROcodone/acetaminophen (*CRX) 5-325 MG TABLET 1 TAB PO ×3 (04:18→11:25)
[2022-12-20] MEDS: IBUPROFEN 600 MG TABLET PO ×3 (04:19→17:33)
[2022-12-20 07:35] VITALS: BP 100/52; PULSE 67; RESP 16; TEMP 36.6; O2SAT 100
[2022-12-20] MEDS: POLYSACCHARIDE IRON COMPLEX 150 MG CAPSULE PO ×2 (07:35→16:32)
[2022-12-20] MEDS: DOCUSATE SODIUM 100 MG CAPSULE PO ×2 (07:35→16:32)
[2022-12-20] MEDS: MULTIVIT/MIN/PREN/FOL AC/IRON TABLET 1 TAB PO (07:35)
--- NOTE | 2022-12-20 09:41 | PM.OBPNVD ---
OB - PN: Subj Subjective Date/time seen: 12/20/22 09:41 s/p section day 2 OB - PN: Obj Data Labs 12/19/22 04:37 OB - PN A/P Plan day: 2 Plan: routine care Time Spent With Patient Time: Total time spent is greater than 50% in coordination of care (as documented) at patient's floor/unit and/or counseling patient: Review of Systems Review of Systems: All systems reviewed & are unremarkable except as noted in HPI and below Exam Narrative: incision CDI Const: General: cooperative, healthy appearing and comfortable
[2022-12-20 20:00] VITALS: BP 119/70; PULSE 93; RESP 18; TEMP 36.8; O2SAT 100
[2022-12-21] MEDS: SIMETHICONE 80 MG TAB.CHEW PO ×3 (04:11→10:20)
[2022-12-21] MEDS: IBUPROFEN 600 MG TABLET PO ×2 (04:11→10:20)
[2022-12-21] MEDS: HYDROcodone/acetaminophen (*CRX) 10-325 MG TABLET 1 TAB PO ×3 (04:11→10:21)
[2022-12-21] MEDS: DOCUSATE SODIUM 100 MG CAPSULE PO (07:17)
[2022-12-21] MEDS: POLYSACCHARIDE IRON COMPLEX 150 MG CAPSULE PO (07:17)
[2022-12-21] MEDS: MULTIVIT/MIN/PREN/FOL AC/IRON TABLET 1 TAB PO (07:17)
[2022-12-21 08:30] VITALS: BP 113/71; PULSE 66; RESP 16; TEMP 36.7; O2SAT 100
--- NOTE | 2022-12-21 10:15 | PM.OBPNVD ---
OB - PN: Subj Subjective Date/time seen: 12/21/22 10:15 s/p section day 3 OB - PN: Obj Data Labs 12/19/22 04:37 OB - PN A/P Plan day: 3 Plan: routine care and discharge home Time Spent With Patient Time: Total time spent is greater than 50% in coordination of care (as documented) at patient's floor/unit and/or counseling patient: Review of Systems Review of Systems: All systems reviewed & are unremarkable except as noted in HPI and below Exam Narrative: incision CDI Const: General: cooperative, healthy appearing and comfortable
--- NOTE | 2022-12-21 10:27 | PC.NURSE ---
Patient viewed the discharge video Mother & Baby Care, The First Two Weeks . Patient was given the opportunity and encouraged to ask questions. Patient verbalized understanding of information shared and has been given the mother/baby guide for home reference.
--- NOTE | 2022-12-24 05:54 | PM.OBDSVD ---
DS: Admitting Diagnosis Discharge Date 12/21/22 Admitting Diagnosis cesrean section DS: Discharge Diagnosis Discharge Diagnosis (1) Delivery by section: Status: Acute OB - DS: Summary OB Procedures : None OB Procedures Intrapartum: OB Procedures: : None Peripartum Data Procedures: Procedures Operation Date: 12/18/22 07:30 Actual Procedure Side Surgeon p Section Leidy Ward MD Time Spent with Patient Time attestation: Total time spent providing and/or coordinating discharge services: Discharge Plan Discharge Attending physician on discharge: Leidy Ward Consulting providers: Aurelia Connolly ; Susana Treadwell ; Paul Weiss Discharging Clinician: Aurelia Connolly Patient Disposition: Home, Self-Care Activity: pelvic rest Diet: regular Discharge Instructions: Education: Mom and Baby Guide Given to: Mother Follow-Up: Call your delivering provider's office for an appointment to be seen in: 1 Week Mom and baby should come to the [facility] for the follow-up appointment. Appointment Date/Time: December 22, 2022 at 10:00 am What to expect at your follow-up visit: Blood Pressure Check Physical Assessment Call [phone] if you are unable to keep your appointment time. BREAST CARE: * Wear a snug supportive bra. * For engorgement discomfort: Breast Feeding: * Apply warm moist washcloths * Express milk as needed to relieve engorgement * Wear loose clothing * For sore nipples: * Identify correct latch-on * Apply warm moist washcloths before and after nursing * Air dry nipples after nursing * May apply Lansinoh cream to nipples ABDOMINAL INCISION: * Allow incision to air dry * Do NOT use lotions or powders on your incision * When showering, allow soap and water to run over the incision, but do not wash incision PERINEAL CARE: * Until bleeding stops, use your eduardo bottle after urinating * Change your pad frequently throughout the day * You may take sitz baths several times a day (fill your bathtub with warm water and soak for 20 minutes.) Do NOT bathe in the water * No tub baths until seen by your physician - You may shower ACTIVITY: * Rest as much as possible. * Do not exercise or lift anything heavier than your baby (such as laundry or other children.) * Avoid stairs or driving as much as possible. * Do not put anything into the vagina. No douching, tampons, or sexual activity until seen by physician. NOTIFY PHYSICIAN IF YOU HAVE ANY QUESTIONS OR IF ANY OF THE FOLLOWING SYMPTOMS OCCUR: * If your incision becomes red, swollen, or more painful than what you have experienced in the hospital. * If your vaginal bleeding becomes foul smelling. * If your vaginal bleeding becomes more heavy than a period or if your bleeding changes from pink to bright red. However, you may pass an occasional walnut-sized clot once or twice for the first week . * If you experience a sharp, shooting pain in your calves. * If you discover a hard, reddened area on your breast or if you experience flu-like symptoms. DIET: * Eat regular, well-balanced meals. * Drink plenty of fluids daily. If , drink to thirst. Patient Instructions: Antibiotic Form Stand Alone Forms: General Discharge Information Follow-up/Referrals: Leidy Ward MD [Physician] - 1 Week Discharge Medications: New hydrocodone-acetaminophen 5-325 mg Tablet 1 tablet PO Q3H PRN (Reason: Moderate Pain (4-6)) Qty: 25 0RF Continued Vitamin Plus Low Iron 27 mg iron- 1 mg tablet 1 tablet PO DAILY Date of admission: 12/18/22 04:57 Primary Care Provider: PHYSICIAN,DRAMATIC [employer]S HISTORIAN Admitting Provider: Leidy Ward Attending physician on admission: Leidy Ward Condition: Stable
== END 2022-12-21 13:18 | disposition home or self-care (01) | DRG 540 ==
LOC: ANHLDR 05:00 → ANHOB2 10:48
PROVIDERS: Admitting Provider Obstetrics & Gynecology; Visit Provider Obstetrics & Gynecology
PROC: 10D00Z1 Extraction of Products of Conception, Low, Open Approach (ICD-10-PCS; CPT 59514; principal; 2022-12-18 07:30)
DX: O34.219 Maternal care for unspecified type scar from previous cesarean delivery (principal); L29.9 Pruritus, unspecified; O99.72 Diseases of the skin and subcutaneous tissue complicating childbirth; Z3A.39 39 weeks gestation of pregnancy; Z37.0 Single live birth
CPT/HCPCS: 36415; 85025; A9270; J0131; J0690; J1200; J1885; J2274; J2300; J2590; J7120

== ENCOUNTER 2023-10-11 12:16 | Observation (INO) | payer OTHER, SELFPAY ==
[2023-10-11] VITALS (65 sets, daily range): BP systolic 101–127; BP diastolic 53–80; PULSE 95–119; O2SAT 97–100; BMI 40.3
[2023-10-11] MEDS: LACTATED RINGERS 1,000 ML 999 ML IV CONT (12:27)
[2023-10-11] MEDS: TERBUTALINE SULFATE 1 MG/ML VIAL 0.25 MG SUB-Q (12:53)
[2023-10-11] MEDS: NIFEdipine 10 MG CAPSULE PO ×2 (12:54→13:40)
[2023-10-11] MEDS: LACTATED RINGERS 1,000 ML 150 ML IV CONT (13:41)
--- NOTE | 2023-10-11 13:50 | OBADM ---
This patient, Estrella Templeton, admitted to the OB room Labor/Delivery/Recovery 118 for observation. Patient/family oriented to hospital policies and general routines including ID bracelet, bed and alarms, visiting hours, pain management, procedures, bathroom and other care routines, personal items, smoking policy, room service/diet, and visiting hours. Patient/Family are encouraged to report perceived risks to care and to ask questions if they do not understand what they are told or what they should do. Pt. presents to L&D via stretcher from EMS. Pt. reports ctxns q 1 minute since approx. 1130. Pt. denies vaginal bleeding and states she's not sure if leaking any fluid. Pt. room 118, monitors placed at this time.
[2023-10-11] MEDS: ONDANSETRON INJ 4 MG/2 ML VIAL IV PUSH ×2 (14:09→14:15)
[2023-10-11] MEDS: BETAMETHASONE SOD PHOS/ACETATE 30 MG/5 ML VIAL 12 MG IM (14:14)
[2023-10-11] MEDS: MAGNESIUM SULF 6 GM/WATER150ML 6 GM/150 ML BAG IVPB (14:35)
[2023-10-11] MEDS: MAGNESIUM SULF 20GM/WATER500ML 500 ML 50 MG IV CONT (15:06)
[2023-10-11] MEDS: fentaNYL CITRATE INJ (*CRX) 100 MCG/2 ML VIAL 50 MCG IV PUSH ×2 (15:36→16:59)
--- NOTE | 2023-10-11 16:07 | PM.TDS ---
Transfer Discharge Sum: Prov Provider Date of admission: 10/11/23 12:16 Primary care physician: LEHR LOADER PHYSICIAN Admitting clinician: Leidy Ward MD Attending physician on discharge: Leidy Ward Discharging clinician: Leidy Ward Anticipated date of transfer: 10/11/23 Receiving physician/facility: Dr. Armenta, [facility] DS: Admitting Diagnosis Discharge Date October 11, 2023 Admitting Diagnosis pre term contractions DS: Discharge Diagnosis Discharge Diagnosis (1) Delivery by section: Status: Acute (2) contractions: Code(s): O47.00 - False labor before 37 completed weeks of gestation, unspecified trimester Status: Acute Transfer Discharge Sum: Med Medications Active and Home Medications: Home Medications vitamin with calcium no.72-iron 27 mg-folic acid 1 mg tablet ( Vitamins Plus Low Iron) 1 tablet PO DAILY 12/04/22 [History Confirmed 12/18/22] hydrocodone 5 mg-acetaminophen 325 mg tablet 1 tablet PO Q3H PRN Moderate Pain (4-6) #25 tabs 12/21/22 [Rx] Active Medications Betamethasone Acet/Betameth SodPhos (Betamethasone Sod Phos/Acetate 30 Mg/5 Ml Vial) 12 mg IM Q24H ON LICENSE OF [facility] Stop: 10/12/23 14:06 Last Admin: 10/11/23 14:14 Dose: 12 mg Fentanyl Citrate (Fentanyl Citrate Inj (*Crx) 100 Mcg/2 Ml Vial) 50 mcg IV PUSH Q1H PRN PRN Reason: Pain Last Admin: 10/11/23 15:36 Dose: 50 mcg Lactated Ringer's (Lr - Lactated Ringers Iv) 1,000 mls @ 150 mls/hr IV CONT .Q6H40M ON LICENSE OF [facility] Last Infusion: 10/11/23 14:51 Dose: 75 mls/hr Magnesium Sulfate (Magnesium Sulf 20gm/[id number]) 500 mls @ 50 mls/hr IV CONT .Q10H ON LICENSE OF [facility] Last Admin: 10/11/23 15:06 Dose: 50 mls/hr Ondansetron HCl (Ondansetron Inj 4 Mg/2 Ml Vial) 4 mg IV PUSH Q6H PRN PRN Reason: Nausea And Vomiting Last Admin: 10/11/23 14:15 Dose: 4 mg Transfer Discharge Sum: Hosp Hospital Course Hospital course: Estrella Templeton is a 33 year old female this is a 33-year-old 105 at 32 weeks gestation presenting with pre term painful contractions. Tocolysis was administered, steroids were administered. Initially nifedipine was tried as a toco lytic agent and then magnesium sulfate was initiated, dexamethasone was administered this afternoon. Patient's cervix did not change. She was clearly uncomfortable and had moderate pain with contractions. That improved after tocolysis was administered but not resolved. Her contractions became less painful and were further Apart in time. there is reassuring status. Infant is known to be growing well. No significant medical concerns other than obesity and mild anemia. Maternal Medicine was contacted and transfer was accepted. Transport team was EN route Time Spent with Patient Time attestation: Total time spent providing and/or coordinating transfer services: Exam Const: General: cooperative, healthy appearing, comfortable and no acute distress Orientation/consciousness: oriented to person, oriented to place and oriented to time HENMT: Head: normal to inspection Ears: external ears normal Face/Nose/Sinus: Normal external nose present and normal facial exam Face and sinus: normal facial exam Eyes: General: appearance normal, both eyes and all related structures Neck: Neck: normal visual inspection, trachea midline and supple Resp: Auscultation: clear to auscultation bilaterally, no crackles, no rales, no rhonchi and no wheezes Cardio: Rate: regular rate Rhythm: regular rhythm Heart sounds: no click, no murmurs and no rubs GI: GI Palp: No abdominal tenderness, No Soft to palpation, No Tenderness to palpation present (GI) and No Palpable mass present Auscultation: normal bowel sounds Skin: General skin exam: normal color and no rashes or lesions noted Neuro: General: oriented to person, oriented to place and oriented to time Extrem: General: normal to inspection, no joint enlargement, no clubbing, cyanosis or magdaleno
--- NOTE | 2023-10-11 16:12 | PM.IMHP ---
H&P: HPI History of Present Illness Date/Time: 10/11/23 16:12 Chief Complaint: painful contractions Narrative: Estrella Templeton is a 33 year old female this is a 33-year-old 105 at 32 weeks gestation presenting with pre term painful contractions. Tocolysis was administered, steroids were administered. Initially nifedipine was tried as a toco lytic agent and then magnesium sulfate was initiated, dexamethasone was administered this afternoon. Patient's cervix did not change. She was clearly uncomfortable and had moderate pain with contractions. That improved after tocolysis was administered but not resolved. Her contractions became less painful and were further Apart in time. there is reassuring status. Infant is known to be growing well. No significant medical concerns other than obesity and mild anemia. Maternal Medicine was contacted and transfer was accepted. Transport team was EN route Review of Systems Review of Systems: All systems reviewed & are unremarkable except as noted in HPI and below Constitutional: Constitutional: Denies chills, Denies fatigue, Denies fever(s) and Denies weakness Eyes: Eyes: Denies blurry vision, Denies change in vision, Denies loss of peripheral vision, Denies loss of vision, Denies other visual disturbances and Denies eye pain ENT: Denies vertigo, Denies dizziness, Denies hearing loss, Denies mouth pain, Denies nasal obstruction, Denies neck mass and Denies neck pain Cardiovascular: Cardiovascular: Denies chest pain, Denies diaphoresis, Denies syncope, Denies leg edema and Denies dyspnea Respiratory: Respiratory: Denies chest congestion, Denies cough, Denies hemoptysis, Denies dyspnea and Denies wheezing Gastrointestinal: Gastrointestinal: Denies abdominal pain, Denies constipation, Denies diarrhea, Denies nausea and Denies vomiting Genitourinary: Genitourinary: Denies hematuria, Denies change in libido, Denies nocturia, Denies genital lesions, Denies flank pain and Denies urinary urgency Musculoskeletal: Musculoskeletal: Denies abnormal gait, Denies back pain, Denies myalgias, Denies arthralgias, Denies joint swelling, Denies muscle weakness and Denies neck pain Integumentary/Breasts: Skin/Breast: Denies swelling, Denies breast pain, Denies breast mass, Denies dry skin, Denies nipple discharge, Denies unusual bruising and Denies jaundice Neurologic: Denies Neuro-related abnormal movements, Denies Abnormal speech present, Denies abnormal gait, Denies behavioral changes, Denies confusion, Denies vertigo, Denies dizziness, Denies syncope, Denies loss of vision, Denies memory loss, Denies convulsions and Denies weakness Psychiatric: Psychiatric: Denies abnormal sleep pattern, Denies behavioral changes, Denies change in libido, Denies confusion, Denies depression, Denies anhedonia and Denies memory loss Endocrine: Endocrine: Reports no additional endocrine complaints, Denies change in libido and Denies fatigue Hematologic/Lymphatic: Hematologic/Lymphatic: Reports no additional hematologic/lymphatic complaints Allergic/Immunologic: Allergic/Immunologic: Reports no additional allergic/immunologic complaints and Denies wheezing [facility] Family History Family History Other Unknown family medical history Social History Social History Smoking status: Never smoker Substance use: never Lack of Transportation: No Lack of Food: Never True Current Housing: I Have Housing Concerned About Future Housing: No Difficulty Paying Gas/Electric Bills: No Difficulty Paying for Meds: No Currently Unemployed: No Education: High School Diploma/GED Difficulty w/ Childcare or Family Care: No Spiritual care concerns: No Meds Home Medications and Allergies Home Medications Medication Instructions Recorded Confirmed Type vitamin with calci
== END 2023-10-11 17:17 ==
LOC: ANHLDR 12:40
PROVIDERS: Admitting Provider Obstetrics & Gynecology; Visit Provider Obstetrics & Gynecology
DX: O47.03 False labor before 37 completed weeks of gestation, third trimester (principal); Z3A.33 33 weeks gestation of pregnancy
CPT/HCPCS: 84112; 96361; 96365; 96372; 96375; A9270; G0378; G0379; J0702; J2405; J3010; J3105; J3475; J7120

== ENCOUNTER 2024-08-06 08:57 | Emergency (ER) | payer OTHER, SELFPAY ==
--- NOTE | ~2024-08-06 | US_ITS ---
EXAMINATION: US venous doppler LE RT DATE: 08/06/2024 10:37 INDICATION: Right lower limb pain. Deep vein thrombosis. TECHNIQUE: Grayscale ultrasound images without and with compression and Doppler ultrasound images of the right lower extremity veins were obtained. COMPARISON: None. FINDINGS: The visualized portions of right common femoral vein, profunda (deep) femoral vein, femoral vein, pop liteal vein, peroneal veins, posterior tibial veins, and greater saphenous vein outflow are patent. IMPRESSION: 1. No deep venous thrombosis. Reviewed, dictated and finalized at location A.
[2024-08-06 09:02] VITALS: BP 119/87; PULSE 67; RESP 18; TEMP 36.7; O2SAT 99
[2024-08-06 09:12] VITALS: BP 107/73; PULSE 69; RESP 18; O2SAT 100
[2024-08-06] MEDS: HYDROcodone/acetaminophen (*CRX) 5-325 MG TABLET 1 TAB PO (10:05)
--- NOTE | 2024-08-06 11:48 | ED.EXTPRO ---
HPI - Extremity Problem General Chief complaint: Extremity Problem,Nontraumatic Stated complaint: R/o DVT Time Seen by Provider: 08/06/24 09:49 History of Present Illness HPI Narrative: This is a 34-year-old female presenting to the emergency department for evaluation of right leg pain she describes as a pins and needle sensation down her posterior calf and lateral aspect of her right leg distal to the knee. She went to a another facility today which recommended she get a Doppler ultrasound in the emergency department for rule out of a DVT. They gave her a dose of Eliquis prior to arrival empirically. Patient states she did have a recent laparoscopic cholecystectomy 2 weeks prior but is recovering well without any complications. She is not taking any kind of control or hormone replacement therapy. No long travel or other recent illnesses. Denies any chest pain, shortness a breath, nausea, vomiting, headache, vision changes. No weakness in the limb, footdrop or any difficulties ambulating. States that is been going on for several weeks even before her surgical date. No history of DVT or PE. Related Data Home Medications Medication Instructions Recorded Confirmed vitamin with calcium 1 tablet PO DAILY 12/04/22 12/18/22 no.72-iron 27 mg-folic acid 1 mg tablet ( Vitamins Plus Low Iron) Allergies Allergy/AdvReac Type Severity Reaction Status Date / Time morphine AdvReac Itching Verified 08/06/24 09:11 Review of Systems Review of Systems: As reviewed above in HPI [facility] Family History Family History Other Unknown family medical history Social History Social History Smoking status: Never smoker Substance use: never Lack of Transportation: No Lack of Food: Never True Current Housing: I Have Housing Concerned About Future Housing: No Difficulty Paying Gas/Electric Bills: No Difficulty Paying for Meds: No Currently Unemployed: No Education: High School Diploma/GED Difficulty w/ Childcare or Family Care: No Spiritual care concerns: No Exam Narrative: GENERAL: [Well-appearing, well-nourished, and in no acute distress.] HEAD: [Normocephalic, atraumatic.] EYES: [PERRLA and EOMI.] ENT: Nares clear, no rhinorrhea or epistaxis. Mucous membranes moist. NECK: Supple. CHEST: [Clear to auscultation. No respiratory distress.] HEART: [Regular rate and rhythm]. No murmur heard. [Normal peripheral pulses.] ABDOMEN: [Soft, nondistended], [nontender], [No rigidity or guarding] EXTREMITIES: Normal range of motion. [No edema.] Plantar and dorsiflexion full without eliciting pain. Able to ambulate. Full range of motion of bilateral lower extremities. No reproducible tenderness with palpation of the calf muscles. Some reproducible paresthesia with compression of the peroneal nerve on the right side. SKIN: Warm, dry, no rash. NEURO: [No focal deficits]. Alert and oriented [x3.] PSYCH: [Normal mood and affect.] Course Vital Signs Vital signs: Vital Signs Temperature 36.7 C 08/06/24 09:02 Pulse Rate 67 08/06/24 09:02 Respiratory Rate 18 08/06/24 09:02 Blood Pressure 119/87 08/06/24 09:02 Pulse Oximetry 99 08/06/24 09:02 Oxygen Delivery Room Air 08/06/24 09:02 Temperature 36.7 C 08/06/24 09:02 Pulse Rate 69 08/06/24 09:12 Respiratory Rate 18 08/06/24 09:12 Blood Pressure 107/73 08/06/24 09:12 Pulse Oximetry 100 08/06/24 09:12 Oxygen Delivery Room Air 08/06/24 09:02 MDM - Extremity (Nontraumatic) MDM Narrative Medical decision making narrative: This is a 34-year-old otherwise healthy female presenting for evaluation of a potential DVT in her right lower extremity. She is 2 weeks postop from laparoscopic cholecystectomy but this is her only risk factor for deep venous thrombosis. No his
== END 2024-08-06 12:14 | disposition home or self-care (01) ==
PROVIDERS: Emergency Provider Student in an Organized Health Care Education/Training Program
DX: M79.604 Pain in right leg (principal); G62.9 Polyneuropathy, unspecified
CPT/HCPCS: 93971; 99284; A9270